=== PATIENT | male | born 1965 | race Caucasian/White ===

== ENCOUNTER 2024-08-26 12:27 | Emergency (ER) | payer MEDICARE ==
[~2024-08-26] VITALS: Ht 172.7 cm; Wt 80.3 kg
[~2024-08-26 12:27] MED LIST: ALTACE10 MG PO; ATIVAN0.5 MG PO; AXIRON30 MG/1.5 TD; BUPROPION XL300 MG PO; FLAX OIL1000 MG PO; GLUCOPHAGE XR750 MG PO; LEVOTHYROXINE50 MCG PO; LINZESS290 MCG PO; METHOCARBAMOL750 MG PO; NORCO 10-325 T1 EACH PO; NYSTATIN-TRIAMC15 GM TOP; PIROXICAM10 MG PO; RANITIDINE HCL150 MG PO; SERTRALINE HCL100 MG PO; SIMVASTATIN80 MG PO; ULTRAM50 MG PO; VITAMIN D250000 UNIT PO; VOLTAREN100 GM TOP; ZYRTEC10 M3 PO
[2024-08-26] MEDS ORDERED: METFORMIN HCL500 M1 PO (12:54)
[2024-08-26] MEDS ORDERED: SERTRALINE HCL50 MG PO (12:54)
[2024-08-26] MEDS ORDERED: ATORVASTATIN CA80 MG PO (12:54)
[2024-08-26] MEDS ORDERED: HYDROmorphone HCL 1 MG/ML SYR IV ONE (13:30)
[2024-08-26] MEDS ORDERED: CEPHALEXIN500 M1 PO (16:26)
[2024-08-26] MEDS ORDERED: HYDROCODON-ACE1 EA10 PO (16:26)
[2024-08-26 16:58] VITALS: BP 124/78
== END 2024-08-26 16:58 | disposition home or self-care (01) ==
LOC: ED 12:27
DX: S62.635A Displaced fracture of distal phalanx of left ring finger, initial encounter for closed fracture (principal); S62.637A Displaced fracture of distal phalanx of left little finger, initial encounter for closed fracture; S61.215A Laceration without foreign body of left ring finger without damage to nail, initial encounter; S61.217A Laceration without foreign body of left little finger without damage to nail, initial encounter; I10 Essential (primary) hypertension; E78.00 Pure hypercholesterolemia, unspecified; W23.0XXA Caught, crushed, jammed, or pinched between moving objects, initial encounter; Z79.84 Long term (current) use of oral hypoglycemic drugs; Z88.5 Allergy status to narcotic agent; Z87.891 Personal history of nicotine dependence
CPT/HCPCS: 12002; 73130; 99283-25; J1171